=== PATIENT | male | born 1960 | race Caucasian/White ===

== ENCOUNTER 2025-10-01 11:22 | Inpatient (IN) ==
--- NOTE | 2025-10-01 11:47 | Emergency Department Note ---
Impression & Plan Arterial occlusion, Ischemia of left lower extremity, Acute non-ST elevation myocardial infarction (NSTEMI), COPD (chronic obstructive pulmonary disease), Pleural effusion ED Provider Note NAME: KELLY LOPEZ AGE: 65 SEX: M : 1960 ARRIVES VIA: Walk-In INFORMANT: Patient, ED PROVIDER(S): Eagle Collins DO CHIEF COMPLAINT: Leg numbness HPI: The patient is a 65-year-old male who presented to the emergency department for an evaluation of not being able to walk. The patient has numbness in both legs. This happened before when he had arterial occlusion. The patient denies having any trauma. He denies having any headache or weakness. He denies having a fever. The patient does have a history of tobacco use as well as peripheral artery disease. Patient also has a history of alcohol use. ROS: See above HPI for pertinent positives & negatives. A total of 10 systems reviewed and were otherwise negative. PAST MEDICAL HISTORY: See Below PAST SURGICAL HISTORY: See Below FAMILY HISTORY: See Below SOCIAL HISTORY: See Below HOME MEDICATIONS: See Below ALLERGIES: See Below VITALS: See Below PHYSICAL EXAMINATION: GENERAL: Patient is awake alert in no acute distress patient is resting comfortably and showing no signs of anxiety EYES: The conjunctivae are clear. The pupils are round and reactive. EARS, NOSE, MOUTH AND THROAT: The nose is without any evidence of any deformity. NECK: The neck is nontender and supple. RESPIRATORY: Normal respiratory effort is noted there is no evidence of wheezing rhonchi or rales CARDIOVASCULAR: Regular rate and rhythm noted there no murmurs rubs or gallops normal S1 normal S2. GASTROINTESTINAL: The abdomen is soft. Abdomen is nontender. MUSCULOSKELETAL/EXTREMITIES: There is no evidence of gross deformity full range of motion is noted in the hips and shoulders. SKIN: Skin is cold and dry. There is no pedal edema. Pulses are diminished bilaterally. NEUROLOGIC: Patient is awake alert and oriented x3. Speech was clear. Strength is symmetric. There is no facial droop. MEDICAL DECISION MAKING: The patient is a 65-year-old male who presented to the emergency department for an evaluation of leg numbness. The patient has a history of peripheral artery disease. He states that this has gotten worse especially since he started on a calcium channel yo. The patient was hypotensive and tachycardic. Initially I thought he could be septic. Blood cultures were ordered and the patient was treated with IV fluids and IV antibiotics. Ultimately the patient was also started on IV heparin for peripheral artery disease. He appears to have an NSTEMI as well. CT was obtained to rule out complete occlusion. There does appear to be of some degree of chronic findings on the CT angiography but some of these could be acute especially given the patient's symptoms. I discussed the patient's condition with the on-call [facility] hospitalist. I also discussed patient's condition with the patient's primary vascular surgeon. The patient was reevaluated multiple times. Blood pressure was improved. Pulse rate is still elevated. Triage Nursing notes reviewed. Prior medical records reviewed Vital Signs: reviewed and remarkable for tachycardia Differential diagnosis: Infection, dehydration, metabolic abnormality, hypo/hyperglycemia, electrolyte disturbance, anemia, hypoxia, cardiac sources, intracerebral event, toxicologic, neurologic, as well as other pathologies. ER treatment provided: See below Diagnostics interpreted by me: ECG: EKG was obtained in the emergency department. My interpretation is sinus tachycardia at [address] and T wave abnormalities were appreciated. This was compared to a tracing from July 31, 2025. No changes were noted. A second EKG was obtained in the emergency department. My interpretation is sinus tachycardia at 116 bpm. There is no ectopy. Similar ST abnormalities were noted to the earlier tracing. No significant changes were noted. Cardiac Monitoring: An order was placed for continuous cardiac monitoring. The monitor shows a rate of 110 bpm with sinus tachycardia. Laboratory studies: As stated above and show below. Imaging studies: See below. Radiographic imaging was reviewed by myself Consultation(s): I discussed this case with Dr. Fox who is on-call for the [facility]. I discussed this case with Dr. Chavez who is the patient's primary vascular surgeon. ED COURSE: Procedures: none Critical Care: I have personally spent greater than 45 minutes of critical care time in the direct management of this patient. This includes bedside care, interpretation of diagnostic studies, and testing, discussion with consultants, patient, and family members, and other required patient management activities. This 45 minutes is in excess of all separately billable procedures. Past Med/Surg History Problem List (Updated 10/01/25 @ 16:37 by Elizabeth Velasquez PA-C) LV dysfunction STEMI (ST elevation myocardial infarction) Pleural effusion (Acute) COPD (chronic obstructive pulmonary disease) (Acute) Acute non-ST elevation myocardial infarction (NSTEMI) (Acute) Arterial occlusion (Acute) Emphysema lung Hematochezia Hyponatremia (Acute) Tobacco use disorder (Acute) GI bleed (Acute) H/O fasciotomy Encounter for pre-operative examination Ischemia of left lower extremity (Acute) Hyponatremia (Chronic) Compartment syndrome Atrial septal defect Regional wall motion abnormality of heart Superficial femoral artery occlusion (Acute) Alcohol dependence (Chronic) Tobacco use (Chronic) Atherosclerosis (Chronic) HLD (hyperlipidemia) (Chronic) HTN (hypertension) (Chronic) Medical History Traumatic intracranial hematoma Surgical History Recent surgical procedure on lower extremity Patient had L leg wound closure/wound vac on 07/21/18 at [facility] under [place]. LMA 5 used. H/O hernia repair Hx of craniotomy DRAIN [id number] WORK INJURY NO ISSUES SINCE History of evacuation of hematoma LEFT X 2 S/P evacuation of hematoma H/O inguinal hernia repair Family History Father , age 79 Prostate cancer Heart disease Mother , age 74 Pancreatic cancer Social History Smoking Status: Current every day smoker Tobacco Type: Cigarettes Cigarettes Per Day: 1 pk/day; Second Hand Exposure: No; Do You Dip or Chew Tobacco: No; Hx Alcohol Use: Yes Alcohol type: beer Hx Substance Use: No Preferred Language: Armenian Communication Ability: Effective Visual Impairment: No Limitations Feed Weigher Required: No Beliefs That Will Affect Care: None Current Living Situation: Spouse Feels Safe at Home: Yes Assistive Devices: None Allergies Allergies Allergy/AdvReac Type Severity Reaction Status Date / Time No Known Allergies Allergy Verified 07/31/25 15:59 Home Meds Home Medications Medication Instructions Recorded Confirmed losartan 50 mg tablet 50 mg PO QAM 07/17/18 10/01/25 aspirin 81 mg tablet,delayed 0 mg PO QAM 10/01/25 10/01/25 release (Ecotrin Low Strength) Previous Rx's Medication Instructions Recorded pantoprazole 40 mg tablet,delayed 40 mg PO DAILY #30 tabs 08/02/25 release amoxicillin 500 mg-potassium 1 tab PO BID 5 days #10 tabs 10/01/25 clavulanate 125 mg tablet (Augmentin) atorvastatin 40 mg tablet 40 mg PO QAM 30 days #30 tabs 10/01/25 doxycycline hyclate 100 mg capsule 100 mg PO BID 5 days #10 caps 10/01/25 Results & Data (ED) Vital Signs Vital Signs - 24 hr 10/01/25 11:24 10/01/25 12:00 10/01/25 12:00 Temperature 36.3 C L Temperature Source Oral Pulse Rate 118 H 112 H Pulse Rate [Apical] 111 H Pulse Rate from SpO2 Sensor Respiratory Rate 17 18 18 Respiratory Effort / Characteristics Spontaneous Blood Pressure 96/64 L Blood Pressure [Left Arm] 109/87 Blood Pressure Mean 74 Blood Pressure Mean [Left Arm] 94 Pulse Oximetry 91 94 94 Oxygen Delivery Method Room Air Room Air Room Air Oxygen Flow Rate Sepsis Recent Fever Within 48 Hours No Sepsis New/Unexplained Change in Mental Status N/A Sepsis Action Taken by Nursing No Action Required Oxygen Flow Rate - Titration Pulse Oximetry Post Tiitration 10/01/25 12:09 10/01/25 13:30 10/01/25 14:00 Temperature Temperature Source Pulse Rate 116 H Pulse Rate [Apical] 112 H 122 H Pulse Rate from SpO2 Sensor Respiratory Rate 22 22 Respiratory Effort / Characteristics Labored Labored Blood Pressure Blood Pressure [Left Arm] 107/82 124/82 Blood Pressure Mean Blood Pressure Mean [Left Arm] 90 96 Pulse Oximetry 91 95 Oxygen Delivery Method Room Air Nasal Cannula Oxygen Flow Rate 2 Sepsis Recent Fever Within 48 Hours Sepsis New/Unexplained Change in Mental Status Sepsis Action Taken by Nursing Oxygen Flow Rate - Titration Pulse Oximetry Post Tiitration 10/01/25 14:15 10/01/25 14:15 10/01/25 14:45 Temperature Temperature Source Pulse Rate Pulse Rate [Apical] 110 H Pulse Rate from SpO2 Sensor Respiratory Rate 20 Respiratory Effort / Characteristics Blood Pressure 117/85 Blood Pressure [Left Arm] 114/85 Blood Pressure Mean 95 Blood Pressure Mean [Left Arm] 94 Pulse Oximetry 88 L 96 Oxygen Delivery Method Room Air Nasal Cannula Nasal Cannula Oxygen Flow Rate 0 2 Sepsis Recent Fever Within 48 Hours Sepsis New/Unexplained Change in Mental Status Sepsis Action Taken by Nursing Oxygen Flow Rate - Titration 2 Pulse Oximetry Post Tiitration 94 10/01/25 14:45 10/01/25 14:45 10/01/25 14:45 Temperature Temperature Source Pulse Rate Pulse Rate [Apical] Pulse Rate from SpO2 Sensor Respiratory Rate Respiratory Effort / Characteristics Blood Pressure 117/85 117/85 117/85 Blood Pressure [Left Arm] Blood Pressure Mean 95 95 95 Blood Pressure Mean [Left Arm] Pulse Oximetry Oxygen Delivery Method Oxygen Flow Rate Sepsis Recent Fever Within 48 Hours Sepsis New/Unexplained Change in Mental Status Sepsis Action Taken by Nursing Oxygen Flow Rate - Titration Pulse Oximetry Post Tiitration 10/01/25 14:45 10/01/25 14:45 10/01/25 15:00 Temperature Temperature Source Pulse Rate 109 H 108 H Pulse Rate [Apical] Pulse Rate from SpO2 Sensor 110 H 109 H Respiratory Rate 23 22 Respiratory Effort / Characteristics Blood Pressure 117/85 Blood Pressure [Left Arm] Blood Pressure Mean 95 Blood Pressure Mean [Left Arm] Pulse Oximetry 96 95 Oxygen Delivery Method Nasal Cannula Nasal Cannula Oxygen Flow Rate 2 2 Sepsis Recent Fever Within 48 Hours Sepsis New/Unexplained Change in Mental Status Sepsis Action Taken by Nursing Oxygen Flow Rate - Titration Pulse Oximetry Post Tiitration 10/01/25 15:00 10/01/25 15:00 10/01/25 15:00 Temperature Temperature Source Pulse Rate Pulse Rate [Apical] Pulse Rate from SpO2 Sensor Respiratory Rate Respiratory Effort / Characteristics Blood Pressure 120/83 120/83 120/83 Blood Pressure [Left Arm] Blood Pressure Mean 92 92 92 Blood Pressure Mean [Left Arm] Pulse Oximetry Oxygen Delivery Method Oxygen Flow Rate Sepsis Recent Fever Within 48 Hours Sepsis New/Unexplained Change in Mental Status Sepsis Action Taken by Nursing Oxygen Flow Rate - Titration Pulse Oximetry Post Tiitration 10/01/25 15:00 10/01/25 15:00 10/01/25 15:15 Temperature Temperature Source Pulse Rate 109 H Pulse Rate [Apical] Pulse Rate from SpO2 Sensor 109 H Respiratory Rate 22 Respiratory Effort / Characteristics Blood Pressure 120/83 120/83 Blood Pressure [Left Arm] Blood Pressure Mean 92 92 Blood Pressure Mean [Left Arm] Pulse Oximetry 94 Oxygen Delivery Method Nasal Cannula Oxygen Flow Rate 2 Sepsis Recent Fever Within 48 Hours Sepsis New/Unexplained Change in Mental Status Sepsis Action Taken by Nursing Oxygen Flow Rate - Titration Pulse Oximetry Post Tiitration 10/01/25 15:15 10/01/25 15:15 10/01/25 15:15 Temperature Temperature Source Pulse Rate Pulse Rate [Apical] Pulse Rate from SpO2 Sensor Respiratory Rate Respiratory Effort / Characteristics Blood Pressure 120/86 120/86 120/86 Blood Pressure [Left Arm] Blood Pressure Mean 90 90 90 Blood Pressure Mean [Left Arm] Pulse Oximetry Oxygen Delivery Method Oxygen Flow Rate Sepsis Recent Fever Within 48 Hours Sepsis New/Unexplained Change in Mental Status Sepsis Action Taken by Nursing Oxygen Flow Rate - Titration Pulse Oximetry Post Tiitration 10/01/25 15:15 10/01/25 15:15 10/01/25 15:30 Temperature Temperature Source Pulse Rate 110 H Pulse Rate [Apical] Pulse Rate from SpO2 Sensor 110 H Respiratory Rate 23 Respiratory Effort / Characteristics Blood Pressure 120/86 120/86 Blood Pressure [Left Arm] Blood Pressure Mean 90 90 Blood Pressure Mean [Left Arm] Pulse Oximetry 94 Oxygen Delivery Method Nasal Cannula Oxygen Flow Rate 2 Sepsis Recent Fever Within 48 Hours Sepsis New/Unexplained Change in Mental Status Sepsis Action Taken by Nursing Oxygen Flow Rate - Titration Pulse Oximetry Post Tiitration 10/01/25 15:30 10/01/25 15:30 10/01/25 15:30 Temperature Temperature Source Pulse Rate Pulse Rate [Apical] Pulse Rate from SpO2 Sensor Respiratory Rate Respiratory Effort / Characteristics Blood Pressure 123/80 123/80 123/80 Blood Pressure [Left Arm] Blood Pressure Mean 90 90 90 Blood Pressure Mean [Left Arm] Pulse Oximetry Oxygen Delivery Method Oxygen Flow Rate Sepsis Recent Fever Within 48 Hours Sepsis New/Unexplained Change in Mental Status Sepsis Action Taken by Nursing Oxygen Flow Rate - Titration Pulse Oximetry Post Tiitration 10/01/25 15:30 10/01/25 15:30 10/01/25 15:30 Temperature Temperature Source Pulse Rate Pulse Rate [Apical] Pulse Rate from SpO2 Sensor Respiratory Rate Respiratory Effort / Characteristics Blood Pressure 123/80 123/80 123/80 Blood Pressure [Left Arm] Blood Pressure Mean 90 90 90 Blood Pressure Mean [Left Arm] Pulse Oximetry Oxygen Delivery Method Oxygen Flow Rate Sepsis Recent Fever Within 48 Hours Sepsis New/Unexplained Change in Mental Status Sepsis Action Taken by Nursing Oxygen Flow Rate - Titration Pulse Oximetry Post Tiitration 10/01/25 15:30 10/01/25 15:30 10/01/25 15:30 Temperature Temperature Source Pulse Rate Pulse Rate [Apical] Pulse Rate from SpO2 Sensor Respiratory Rate Respiratory Effort / Characteristics Blood Pressure 123/80 123/80 123/80 Blood Pressure [Left Arm] Blood Pressure Mean 90 90 90 Blood Pressure Mean [Left Arm] Pulse Oximetry Oxygen Delivery Method Oxygen Flow Rate Sepsis Recent Fever Within 48 Hours Sepsis New/Unexplained Change in Mental Status Sepsis Action Taken by Nursing Oxygen Flow Rate - Titration Pulse Oximetry Post Tiitration 10/01/25 15:45 10/01/25 15:45 10/01/25 15:45 Temperature Temperature Source Pulse Rate 108 H Pulse Rate [Apical] Pulse Rate from SpO2 Sensor 109 H Respiratory Rate 21 Respiratory Effort / Characteristics Blood Pressure 116/85 116/85 Blood Pressure [Left Arm] Blood Pressure Mean 91 91 Blood Pressure Mean [Left Arm] Pulse Oximetry 96 Oxygen Delivery Method Nasal Cannula Oxygen Flow Rate 2 Sepsis Recent Fever Within 48 Hours Sepsis New/Unexplained Change in Mental Status Sepsis Action Taken by Nursing Oxygen Flow Rate - Titration Pulse Oximetry Post Tiitration 10/01/25 15:45 10/01/25 15:45 10/01/25 15:45 Temperature Temperature Source Pulse Rate Pulse Rate [Apical] Pulse Rate from SpO2 Sensor Respiratory Rate Respiratory Effort / Characteristics Blood Pressure 116/85 116/85 116/85 Blood Pressure [Left Arm] Blood Pressure Mean 91 91 91 Blood Pressure Mean [Left Arm] Pulse Oximetry Oxygen Delivery Method Oxygen Flow Rate Sepsis Recent Fever Within 48 Hours Sepsis New/Unexplained Change in Mental Status Sepsis Action Taken by Nursing Oxygen Flow Rate - Titration Pulse Oximetry Post Tiitration 10/01/25 16:00 10/01/25 16:00 10/01/25 16:00 Temperature Temperature Source Pulse Rate 130 H Pulse Rate [Apical] Pulse Rate from SpO2 Sensor 133 H Respiratory Rate 24 Respiratory Effort / Characteristics Blood Pressure 135/94 135/94 Blood Pressure [Left Arm] Blood Pressure Mean 96 96 Blood Pressure Mean [Left Arm] Pulse Oximetry 94 Oxygen Delivery Method Nasal Cannula Oxygen Flow Rate 2 Sepsis Recent Fever Within 48 Hours Sepsis New/Unexplained Change in Mental Status Sepsis Action Taken by Nursing Oxygen Flow Rate - Titration Pulse Oximetry Post Tiitration 10/01/25 16:00 10/01/25 16:00 10/01/25 16:00 Temperature Temperature Source Pulse Rate Pulse Rate [Apical] Pulse Rate from SpO2 Sensor Respiratory Rate Respiratory Effort / Characteristics Blood Pressure 135/94 135/94 135/94 Blood Pressure [Left Arm] Blood Pressure Mean 96 96 96 Blood Pressure Mean [Left Arm] Pulse Oximetry Oxygen Delivery Method Oxygen Flow Rate Sepsis Recent Fever Within 48 Hours Sepsis New/Unexplained Change in Mental Status Sepsis Action Taken by Nursing Oxygen Flow Rate - Titration Pulse Oximetry Post Tiitration 10/01/25 16:06 10/01/25 16:15 10/01/25 16:15 Temperature Temperature Source Pulse Rate 126 H 114 H Pulse Rate [Apical] Pulse Rate from SpO2 Sensor 114 H Respiratory Rate 21 Respiratory Effort / Characteristics Blood Pressure 115/80 Blood Pressure [Left Arm] Blood Pressure Mean 91 Blood Pressure Mean [Left Arm] Pulse Oximetry 96 Oxygen Delivery Method Nasal Cannula Oxygen Flow Rate 2 Sepsis Recent Fever Within 48 Hours Sepsis New/Unexplained Change in Mental Status Sepsis Action Taken by Nursing Oxygen Flow Rate - Titration Pulse Oximetry Post Tiitration 10/01/25 16:15 10/01/25 16:15 10/01/25 16:15 Temperature Temperature Source Pulse Rate Pulse Rate [Apical] Pulse Rate from SpO2 Sensor Respiratory Rate Respiratory Effort / Characteristics Blood Pressure 115/80 115/80 115/80 Blood Pressure [Left Arm] Blood Pressure Mean 91 91 91 Blood Pressure Mean [Left Arm] Pulse Oximetry Oxygen Delivery Method Oxygen Flow Rate Sepsis Recent Fever Within 48 Hours Sepsis New/Unexplained Change in Mental Status Sepsis Action Taken by Nursing Oxygen Flow Rate - Titration Pulse Oximetry Post Tiitration 10/01/25 16:15 10/01/25 16:30 Temperature Temperature Source Pulse Rate 115 H Pulse Rate [Apical] Pulse Rate from SpO2 Sensor 115 H Respiratory Rate 20 Respiratory Effort / Characteristics Blood Pressure 115/80 Blood Pressure [Left Arm] Blood Pressure Mean 91 Blood Pressure Mean [Left Arm] Pulse Oximetry 98 Oxygen Delivery Method Nasal Cannula Oxygen Flow Rate 2 Sepsis Recent Fever Within 48 Hours Sepsis New/Unexplained Change in Mental Status Sepsis Action Taken by Nursing Oxygen Flow Rate - Titration Pulse Oximetry Post Tiitration Home Medications Current Medication List: was personally reviewed by mn Laboratory Data Attestation: I reviewed the patient's lab results. 10/01/25 12:00 10/01/25 12:00 Lab Results 10/01/25 10/01/25 10/01/25 Range/Units 12:00 12:10 13:53 WBC 13.93 H (4.8-10.8) K/ul RBC 3.74 L (4.70-6.10) M/uL Hgb 10.1 L (14.0-18.0) g/dL POC Hgb 10.2 L (14.0-18.0) g/dl Hct 29.9 L (42.0-52.0) % POC Hct 30 L (42-52) % MCV 79.9 L (80.0-100.0) fL MCH 27.0 (25.0-34.0) pg MCHC 33.8 (32.0-36.0) g/dL RDW Std Deviation 46.2 (36.4-46.3) fL RDW Coeff of Mercedes 15.9 H (11.5-14.5) % Plt Count 269 (130-400) K/uL MPV 9.8 (9.4-12.4) fL Immature Gran % (Auto) 0.4 % Neut % (Auto) 87.6 % Lymph % (Auto) 5.8 % [place] % (Auto) 6.0 % Eos % (Auto) 0.1 % Baso % (Auto) 0.1 % Neut # (Auto) 12.20 H (1.40-6.50) K/uL Lymph # (Auto) 0.81 L (1.20-3.40) K/uL [place] # (Auto) 0.83 H (0.11-0.59) K/uL Eos # (Auto) 0.01 (0.00-0.50) K/uL Baso # (Auto) 0.02 (0.00-0.20) K/uL Immature Gran # (Auto) 0.06 (0.01-0.20) K/uL Polychromasia 2+ Echinocytes 1+ PT 11.4 (9.0-12.0) Seconds INR 1.1 (0.9-1.1) APTT 24 (21-31) Seconds PTT Ratio 0.9 VBG pH 7.35 L (7.36-7.41) VBG pCO2 40 (38-50) mmHg VBG pO2 20 mmHg VBG HCO3 22 mmol/L VBG O2 Saturation < 60.0 % VBG Base Excess -3.3 mEq/L POC Sodium 130 L (135-144) mmol/L Sodium 131 L (136-145) mmol/L POC Potassium 4.1 (3.3-5.0) mmol/L Potassium 4.2 (3.5-5.1) mmol/L POC Chloride 95 L (101-112) mmol/L Chloride 96 L (98-107) mmol/L Carbon Dioxide 24 (21-32) mmol/L POC Total CO2 23 L (24-31) mmol/L Anion Gap 11 (3-11) POC Anion Gap 17.0 (16-25) mmol/L POC BUN 15 (7-18) mg/dl BUN 16 (6-23) mg/dl Creatinine 0.86 (0.6-1.4) mg/dl POC Creatinine 0.9 (0.6-1.3) mg/dl Est Cr Clr Drug Dosing Not Reportable eGFR 94.90 BUN/Creatinine Ratio 18.6 (10-20) Glucose 99 (70-99(Fasting)) mg/dl POC Glucose (other) 95 (70-99) mg/dl Lactate 3.4 H* 2.8 H* (0.4-2.0) mmol/L Calcium 8.9 (8.6-10.3) mg/dl POC Ioniz Calcium Rashida 1.11 L (1.12-1.32) mmol/l Magnesium 2.0 (1.7-2.4) mg/dl Total Bilirubin 0.6 (0.2-1.0) mg/dl Direct Bilirubin 0.1 (0-0.2) mg/dl AST 246 H (13-39) U/L ALT 67 H (7-52) U/L Alkaline Phosphatase 80 (34-104) U/L Troponin I High Sens 18673.3 H* 24681.6 H* (0-20) pg/ml Total Protein 6.8 (6.0-8.3) gm/dl Albumin 4.5 (3.4-5.0) gm/dl Procalcitonin 2.33 H (0-0.5) ng/ml Administered Medications Discontinued Medications Albuterol (Albut/Ipratrop 3mg/0.5mg Neb 3 Ml Vial) 3 ml NEB NOW STA; Protocol Stop: 10/01/25 14:05 Last Admin: 10/01/25 14:07 Dose: 3 ml Documented By: SHANKAR Fentanyl Citrate (Fentanyl Citrate Pf 100 Mcg/2 Ml Vial) Confirm Administered Dose 100 mcg .ROUTE .STK-MED ONE Stop: 10/01/25 16:25 Last Increment: 10/01/25 17:38 Dose: 50 mcg Documented By: SCOTT Heparin Sodium (Porcine) (Heparin (Porcine) 1000 Unit/Ml 10 Ml (Rn Radiology Use Only)) Confirm Administered Dose 10,000 units .ROUTE .STK-MED ONE Stop: 10/01/25 16:24 Last Admin: 10/01/25 17:38 Dose: Not Given Documented By: SCOTT Heparin Sodium/Dextrose (Heparin Iv Adult Wt-Based Low-Dose *No* Initial Bolus Protocol) 1 each IV ONE STA; Protocol Stop: 10/01/25 13:27 Last Admin: 10/01/25 14:27 Dose: Not Given Documented By: aditi Heparin Sodium/Sodium Chloride (Heparin In Nss Infusion 1000 Unit/500 Ml (2 U/Ml) Bag) Confirm Administered Dose 3,000 units IV .STK-MED ONE Stop: 10/01/25 16:25 Last Admin: 10/01/25 17:39 Dose: Not Given Documented By: SCOTT Sodium Chloride (Nss) 500 mls @ 999 mls/hr IV .Q31M ONE Stop: 10/01/25 12:09 Last Infusion: 10/01/25 14:40 Dose: Infused Documented By: aditi Admin: 10/01/25 13:21 Dose: 999 mls/hr Documented By: SHANKAR Sodium Chloride (Nss) 1,000 mls @ 999 mls/hr IV .Q1H1M ONE Stop: 10/01/25 14:04 Last Infusion: 10/01/25 14:39 Dose: Infused Documented By: aidti Admin: 10/01/25 13:21 Dose: 999 mls/hr Documented By: SHANKAR Ceftriaxone Sodium (Rocephin) 2,000 mg in 50 mls @ 100 mls/hr IV NOW STA Stop: 10/01/25 13:33 Last Infusion: 10/01/25 14:00 Dose: Infused Documented By: aditi Admin: 10/01/25 13:27 Dose: 100 mls/hr Documented By: aditi Heparin Sodium/Dextrose (Heparin 62693 Unit/500 Ml D5w) 25,000 units in 500 mls @ 11 mls/hr IV .Q24H [facility]; Protocol Stop: 10/31/25 13:44 Last Admin: 10/01/25 19:48 Dose: 550 units/hr, 11 mls/hr Documented By: JUICE Co-signed By: ALESHIA Titration: 10/01/25 19:48 Dose: Infused Documented By: JUICE Co-signed By: ALESHIA Admin: 10/01/25 14:19 Dose: 550 units/hr, 11 mls/hr Documented By: aditi Co-signed By: SHANKAR Ioversol (Optiray 320 125ml) 121 ml IV ONCE ONE Stop: 10/01/25 13:20 Last Admin: 10/01/25 13:20 Dose: 121 ml Documented By: FABBY Ioversol (Optiray 350) Confirm Administered Dose 1 ml .ROUTE .STK-MED ONE Stop: 10/01/25 16:25 Last Admin: 10/01/25 17:39 Dose: 10 ml Documented By: SCOTT Lidocaine HCl (Lidocaine 1% Local 20 Ml Vial) Confirm Administered Dose 1 ml .ROUTE .STK-MED ONE Stop: 10/01/25 16:34 Last Admin: 10/01/25 17:39 Dose: 1 ml Documented By: SCOTT Lorazepam (Lorazepam 1 Mg/1 Ml Syr Ed Inj Use) 0.5 mg IV ONE STA Stop: 10/01/25 13:05 Last Admin: 10/01/25 13:08 Dose: 0.5 mg Documented By: aditi Midazolam HCl (Midazolam Hcl 1 Mg/Ml 2ml Vial) Confirm Administered Dose 2 mg .ROUTE .STK-MED ONE Stop: 10/01/25 16:24 Last Admin: 10/01/25 17:38 Dose: 2 mg Documented By: SCOTT Nicardipine HCl (Nicardipine 2,000 Mcg/20 Ml Syr) Confirm Administered Dose 2,000 mcg .ROUTE .STK-MED ONE Stop: 10/01/25 16:25 Last Admin: 10/01/25 17:39 Dose: Not Given Documented By: SCOTT Nitroglycerin/Dextrose (Nitroglycerin/D5w 100mcg/Ml 20ml Syr) Confirm Administered Dose 2,000 mcg .ROUTE .STK-MED ONE Stop: 10/01/25 16:25 Last Admin: 10/01/25 17:39 Dose: Not Given Documented By: SCOTT Imaging Data Attestation: I personally reviewed and interpreted this imaging study as follows: My Impression: 1 view chest x-ray was obtained in the emergency department. My interpretation is bilateral pleural effusions, final report below. Radiologist's Impression: Aorta w/Runoff CTA 10/01/25 11:39 EXAM: CT ang AA runof w inc wo ifdon CLINICAL HISTORY: Leg numbness. TECHNIQUE: CT angiography of the abdomen, pelvis, and both lower limbs was performed with and without intravenous contrast using the following protocol: axial images, and reconstructed coronal and sagittal images. Non-contrast images were initially acquired, followed by contrast-enhanced images in arterial and venous phases. Intravenous contrast, 121 ml Optiray 320, was administered using automated injection techniques. Bolus tracking was employed to optimize arterial phase imaging. COMPARISON: None. FINDINGS: Abdominal Aorta: The abdominal aorta is normal in caliber, with diffuse atheroscelrotic changes in terms of multiple calcified plaques. The distal extent of the abdominal aorta along its infra-renal course shows mixed soft and calcified plaque extending distally to its bifurcation with bilateral extension along the common iliac arteries. Distal arterial significant stenosis reaching 70 %. The Iliac arteries: Both common iliac arteries are totally occluded by the same hypodense plaque /thrombus. The proximal extent of both external iliac arteries also shows total occlusion by hypodense plaque /thrombus. The distal extents of both external iliac arteries and common femoral arteries show distal runoff contrast likely through collateral circulation. Diffuse atherosclerotic calcification of the common iliac, both external and internal iliac, and lower limb areteries noted. Severe stenosis of both internal iliac arteries was noted. severe stenosis of the right common femoral artery by eccentric calcified atherosclerotic plaques. Left lower limb: The left common femoral artery shows fusiform aneurysmal dilatation (14x14 mm in cross-section) with mural thrombus noted; the true lumen is also narrowed. The left superficial femoral artery shows marked atherosclerotic changes with severe stenosis at its distal segment, reaching about 70 to 80 %. Severe stenosis of the left popliteal artery by multiple calcified atherosclerotic plaques reaching about 80%. Severe stenotic changes of the right leg arteries were also noted with defective opacification in the anterior tibial and peroneal arterioles distally, and non-opacified dorsalis pedis as well. The plantar arch is also suboptimally opacified. Right lower limb: The right superficial femoral artery shows multiple scattered calcified atherosclerotic plaques with distal arterial stenosis of about 60 %. Severe stenosis of the right popliteal artery by multiple calcified atherosclerotic plaques reaching about 80% with distal run off to its distal branches. Severe stenotic changes of the right leg arteries were also noted with defective opacification in the anterior tibial and peroneal arteries distally, and non-opacified dorsalis pedis as well. The plantar arch is also suboptimally opacified. Celiac Artery and Branches: The celiac artery and its branches (left gastric artery, splenic artery, common hepatic artery) are patent without stenosis or aneurysm. Scattered calcified atheromatous plaques noted. Superior Mesenteric Artery (SMA) and inferior mesenteric artery: The SMA is patent, with normal origin and course. show mild sntoesis by calcified atherosclerotic plaque. The FEMI is patent Renal Arteries: Both renal arteries show stenotic changes due to calcified atherosclerotic plaques. Solid Organs: Liver: Normal in size, shape, and density. No focal lesions. Normal enhancement pattern. Gallbladder and Biliary System: Gallbladder is normal. No stones or wall thickening. Bile ducts are normal in caliber. Pancreas: Normal in size and density. No masses or cysts. Normal enhancement. Spleen: Normal in size and density. No focal lesions. Normal enhancement. Kidneys and Adrenal Glands: Normal in size and shape. No renal masses or hydronephrosis. Adrenal glands are unremarkable. Normal enhancement. Bilateral renal cortical cysts noted. Bowel: No evidence of bowel obstruction or significant bowel wall thickening. No abnormal enhancement. Peritoneal and Retroperitoneal Structures: No free fluid or abnormal fluid collections were identified within the abdomen or pelvis. No lymphadenopathy was noted. Mild bilateral pleural effusion with subsegmental atelectasis noted. Bones and Soft Tissues: Advanced spondylosis of the lumbar spine noted. Pelvic bones and soft tissues are unremarkable. No fractures or abnormal masses were identified. IMPRESSION: 1. Diffuse aortic, iliac, and both lower limb vessels atherosclerosis. 2. Distal aortic stenosis and total occlusion of both common iliac, external iliac vessels, with distal run off through collateral circulation noted. 3. Multilevel stenosis at the distal lower limb vessels as described above. 4. 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 5. Severe leg vascular stenotic changes were bilateral, with non-opacified distal anterior tibialis, peroneal, dorsalis pedis arteries, and to a lesser extent, plantar arches noted as described above. 6. Mild bilateral pleural effusion with subsegmental atelectasis noted. Electronically signed by Everardo Worley 10-01-2025 3:17 PM Chest X-Ray 10/01/25 11:39 Single frontal view of the chest Comparison made to prior exam dated 07/29/2018 Impression: Interval development of bilateral pleural effusions right greater than left with diffuse prominence of the interstitial infiltrate suggesting pulmonary edema. Slight fullness of the right hilum may represent lymphadenopathy. Dedicated chest CT with contrast recommended for further evaluation. Electronically signed by Magdaleno Nguyen 10-01-2025 2:11 PM Discharge Plan Visit Data Chief Complaint: Shortness of Breath/Dyspnea Stated Complaint: NUMBNESS, TROUBLE BREATHING ED Provider: Eagle Collins Discharge Problem: Arterial occlusion, Ischemia of left lower extremity, Acute non-ST elevation myocardial infarction (NSTEMI), COPD (chronic obstructive pulmonary disease), Pleural effusion Patient Disposition: Admitted As Inpatient Condition: Fair Discharge Instructions Interventions: ED Discharge Assessment Last Done: 10/01/25 16:51
[2025-10-01 12:19] LABS: Base Excess VBG -3.3 mEq/L; HCO3 VBG 22 mmol/L; Oxygen Saturation VBG < 60.0 %; PCO2 VBG 40 mmHg (38-50); PO2 VBG 20 mmHg; pH VBG 7.35 (7.36-7.41)
[2025-10-01 12:40] LABS: Alanine Aminotransferase 67 U/L (7-52); Albumin Level 4.5 gm/dl (3.4-5.0); Alkaline Phosphatase 80 U/L (34-104); Anion Gap 11 (3-11); Bilirubin,Total 0.6 mg/dl (0.2-1.0); Blood Urea Nitrogen 16 mg/dl (6-23); Calcium 8.9 mg/dl (8.6-10.3); Carbon Dioxide 24 mmol/L (21-32); Chloride 96 mmol/L (98-107); Glucose 99 mg/dl (70-99(Fasting)); Magnesium 2.0 mg/dl (1.7-2.4); Potassium 4.2 mmol/L (3.5-5.1); Sodium 131 mmol/L (136-145); Total Protein 6.8 gm/dl (6.0-8.3)
[2025-10-01 12:54] LABS: INR 1.1 (0.9-1.1); Partial Thromboplastin Time 24 Seconds (21-31); Prothrombin Time 11.4 Seconds (9.0-12.0)
[2025-10-01 13:02] LABS: Hematocrit (blood only) 29.9 % (42.0-52.0); Hemoglobin 10.1 g/dL (14.0-18.0); Immature Granulocytes # (auto) 0.06 K/uL (0.01-0.20); Immature Granulocytes % (auto) 0.4 %; Mean Corpuscular Hemoglobin 27.0 pg (25.0-34.0); Mean Corpuscular Volume 79.9 fL (80.0-100.0); Platelet Count 269 K/uL (130-400); Polychromasia 2+; RDW Standard Deviation 46.2 fL (36.4-46.3); Red Blood Count 3.74 M/uL (4.70-6.10); White Blood Count 13.93 K/ul (4.8-10.8)
[2025-10-01] MEDS: LORazepam 1 MG/1 ML SYR ED Inj Use IV STA (13:08)
[2025-10-01] MEDS: OPTIRAY 320 125ml IV ONE (13:20)
[2025-10-01] MEDS: SODIUM CHLORIDE 0.9% 1,000 ML IV ONE (13:21)
[2025-10-01] MEDS: SODIUM CHLORIDE 0.9% 500 ML IV ONE (13:21)
[2025-10-01] MEDS: cefTRIAXone SODIUM 2,000 MG/50 ML BAG IV STA (13:27)
[2025-10-01] MEDS: ALBUT/IPRATROP 3MG/0.5MG NEB 3 ML VIAL NEB STA (14:07)
--- NOTE | 2025-10-01 14:11 | XRay Report ---
Single frontal view of the chest Comparison made to prior exam dated 07/29/2018 Impression: Interval development of bilateral pleural effusions right greater than left with diffuse prominence of the interstitial infiltrate suggesting pulmonary edema. Slight fullness of the right hilum may represent lymphadenopathy. Dedicated chest CT with contrast recommended for further evaluation. Electronically signed by Magdaleno Nguyen 10-01-2025 2:11 PM
[2025-10-01] MEDS: HEPARIN 25000 UNIT/500 ML D5W 25,000 UNITS/500 ML BAG IV SCH (14:19)
[2025-10-01] MEDS: Heparin IV Adult Wt-Based Low-Dose *NO* INITIAL Bolus Protocol IV STA (14:27)
--- NOTE | 2025-10-01 15:17 | CT Scan Report ---
EXAM: CT ang ARMANI chandrakantkaylie amanda kaur CLINICAL HISTORY: Leg numbness. TECHNIQUE: CT angiography of the abdomen, pelvis, and both lower limbs was performed with and without intravenous contrast using the following protocol: axial images, and reconstructed coronal and sagittal images. Non-contrast images were initially acquired, followed by contrast-enhanced images in arterial and venous phases. Intravenous contrast, 121 ml Optiray 320, was administered using automated injection techniques. Bolus tracking was employed to optimize arterial phase imaging. COMPARISON: None. FINDINGS: Abdominal Aorta: The abdominal aorta is normal in caliber, with diffuse atheroscelrotic changes in terms of multiple calcified plaques. The distal extent of the abdominal aorta along its infra-renal course shows mixed soft and calcified plaque extending distally to its bifurcation with bilateral extension along the common iliac arteries. Distal arterial significant stenosis reaching 70 %. The Iliac arteries: Both common iliac arteries are totally occluded by the same hypodense plaque /thrombus. The proximal extent of both external iliac arteries also shows total occlusion by hypodense plaque /thrombus. The distal extents of both external iliac arteries and common femoral arteries show distal runoff contrast likely through collateral circulation. Diffuse atherosclerotic calcification of the common iliac, both external and internal iliac, and lower limb areteries noted. Severe stenosis of both internal iliac arteries was noted. severe stenosis of the right common femoral artery by eccentric calcified atherosclerotic plaques. Left lower limb: The left common femoral artery shows fusiform aneurysmal dilatation (14x14 mm in cross-section) with mural thrombus noted; the true lumen is also narrowed. The left superficial femoral artery shows marked atherosclerotic changes with severe stenosis at its distal segment, reaching about 70 to 80 %. Severe stenosis of the left popliteal artery by multiple calcified atherosclerotic plaques reaching about 80%. Severe stenotic changes of the right leg arteries were also noted with defective opacification in the anterior tibial and peroneal arterioles distally, and non-opacified dorsalis pedis as well. The plantar arch is also suboptimally opacified. Right lower limb: The right superficial femoral artery shows multiple scattered calcified atherosclerotic plaques with distal arterial stenosis of about 60 %. Severe stenosis of the right popliteal artery by multiple calcified atherosclerotic plaques reaching about 80% with distal run off to its distal branches. Severe stenotic changes of the right leg arteries were also noted with defective opacification in the anterior tibial and peroneal arteries distally, and non-opacified dorsalis pedis as well. The plantar arch is also suboptimally opacified. Celiac Artery and Branches: The celiac artery and its branches (left gastric artery, splenic artery, common hepatic artery) are patent without stenosis or aneurysm. Scattered calcified atheromatous plaques noted. Superior Mesenteric Artery (SMA) and inferior mesenteric artery: The SMA is patent, with normal origin and course. show mild sntoesis by calcified atherosclerotic plaque. The FEMI is patent Renal Arteries: Both renal arteries show stenotic changes due to calcified atherosclerotic plaques. Solid Organs: Liver: Normal in size, shape, and density. No focal lesions. Normal enhancement pattern. Gallbladder and Biliary System: Gallbladder is normal. No stones or wall thickening. Bile ducts are normal in caliber. Pancreas: Normal in size and density. No masses or cysts. Normal enhancement. Spleen: Normal in size and density. No focal lesions. Normal enhancement. Kidneys and Adrenal Glands: Normal in size and shape. No renal masses or hydronephrosis. Adrenal glands are unremarkable. Normal enhancement. Bilateral renal cortical cysts noted. Bowel: No evidence of bowel obstruction or significant bowel wall thickening. No abnormal enhancement. Peritoneal and Retroperitoneal Structures: No free fluid or abnormal fluid collections were identified within the abdomen or pelvis. No lymphadenopathy was noted. Mild bilateral pleural effusion with subsegmental atelectasis noted. Bones and Soft Tissues: Advanced spondylosis of the lumbar spine noted. Pelvic bones and soft tissues are unremarkable. No fractures or abnormal masses were identified. IMPRESSION: 1. Diffuse aortic, iliac, and both lower limb vessels atherosclerosis. 2. Distal aortic stenosis and total occlusion of both common iliac, external iliac vessels, with distal run off through collateral circulation noted. 3. Multilevel stenosis at the distal lower limb vessels as described above. 4. 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 5. Severe leg vascular stenotic changes were bilateral, with non-opacified distal anterior tibialis, peroneal, dorsalis pedis arteries, and to a lesser extent, plantar arches noted as described above. 6. Mild bilateral pleural effusion with subsegmental atelectasis noted. Electronically signed by Everardo Worley 10-01-2025 3:17 PM
--- NOTE | 2025-10-01 16:05 | XCELERA ---
[id number] \\[id number]
[2025-10-01] MEDS ORDERED: ACETAMINOPHEN 325 MG TAB PO PRN (16:21)
--- NOTE | 2025-10-01 16:33 | History & Physical Report ---
Date of Service October 01, 2025 Assessment & Plan (1) Acute non-ST elevation myocardial infarction (NSTEMI): Plan Assessment/plan NSTEMI Severe peripheral vascular disease Acute on chronic systolic CHF Possible pneumonia Hyponatremia Patient presented to the hospital with fall and generalized weakness Hemoglobin of 10.1; serum sodium of 131 Lactate was elevated to 3.4, down trended to 2.8 Pro-Fausto elevated High-sensitivity troponin elevated to 35,000; uptrending to 41,884. Chest x-ray shows bilateral pulmonary edema and emphysema. CTA with runoff shows diffuse aortic, iliac and both limb vessel atherosclerosis, distal aortic stenosis and total occlusion of both common iliac, external iliac with distal runoff through collateral circulation, left common femoral artery aneurysmal dilation, severe left leg vascular stenosis changes. Discussion was done with echocardiogram tech, cardiology; stat echo was obtained which showed severely reduced EF of less than 15%; all gillis are akinetic except for basal segment. Heart alert was called after cardiology evaluated the patient; general cardiology discussed the case with interventional cardiology for cardiac cath. Continue on heparin drip, aspirin, Lipitor. Obtain lipid panel in a.m. Trend troponin Consult vascular surgery for further recommendation Continue on empiric antibiotic with ceftriaxone, doxycyline Trend troponin hold diuretics for now COPDbudesonide, formoterol nebs, DuoNeb Q8 Hyponatremia- serum sodium 130s; similar to the baseline Hypertensioncontinue losartan. Hold amlodipine and Lasix Hyperlipidemiastarted on Lipitor Full code DVT prophylaxis heparin Plan of care discussed with the patient's at bedside. She is in agreement with the plan total critical time spent evaluating patient, direct bedside care, chart review, placing orders, interpretation of diagnostic studies, discussion with consultants, patient, and family members, as well as other required patient management activities is 90 minutes Please note the above document was generated using voice recognition software. It may contain grammatical, syntax or spelling errors. Any formal questions or concerns about the content, text or information contained within the body of this dictation should be directly addressed to the provider for clarification History of Present Illness Primary Care Provider: JESSICA Keyes History obtained from chart review, interview with the patient and discussion with the ED provider. Past medical history left ischemic leg with left femoral artery occlusion, compartment syndrome status post surgery in 2018, current tobacco smoker, hypertension. Patient presented to the hospital after he had a fall. He reports that he tried to get up but was unable to do so; got weaker and fell down. No complaints of dizziness, chest pain, shortness of breath, abdominal pain. Patient reports that he was recently seen by podiatry and was prescribed amlodipine. He took his first dose today. On presentation to the ED, he was hypotensive with blood pressure of 96/64, afebrile and was saturating well on room air. Leukocytosis present Hemoglobin of 10.1; similar to his baseline. BMP reveals hyponatremia with serum sodium of 131 Lactate was elevated to 3.4, down trended to 2.8 Pro-Fausto elevated High-sensitivity troponin elevated to 35,000; uptrending to 41,884. Chest x-ray shows bilateral pulmonary edema and emphysema. CTA with runoff shows diffuse aortic, iliac and both limb vessel atherosclerosis, distal aortic stenosis and total occlusion of both common iliac, external iliac with distal runoff through collateral circulation, left common femoral artery aneurysmal dilation, severe left leg vascular stenosis changes. Allergies Allergy/AdvReac Type Severity Reaction Status Date / Time No Known Allergies Allergy Verified 07/31/25 15:59 Home Medications Medication Instructions Recorded Confirmed Type losartan 50 mg tablet 50 mg PO QAM 07/17/18 10/01/25 History pravastatin 20 mg tablet 20 mg PO QAM 07/17/18 10/01/25 History furosemide 20 mg tablet 20 mg PO DAILY 07/31/25 10/01/25 History pantoprazole 40 mg tablet,delayed 40 mg PO DAILY #30 tabs 08/02/25 10/01/25 Rx release aspirin 81 mg tablet,delayed 0 mg PO QAM 10/01/25 10/01/25 History release (Ecotrin Low Strength) Past Med/Surg History Problem List (Updated 10/01/25 @ 15:47 by Eagle Collins DO) Pleural effusion (Acute) COPD (chronic obstructive pulmonary disease) (Acute) Acute non-ST elevation myocardial infarction (NSTEMI) (Acute) Arterial occlusion (Acute) Emphysema lung Hematochezia Hyponatremia (Acute) Tobacco use disorder (Acute) GI bleed (Acute) H/O fasciotomy Encounter for pre-operative examination Ischemia of left lower extremity (Acute) Hyponatremia (Chronic) Compartment syndrome Atrial septal defect Regional wall motion abnormality of heart Superficial femoral artery occlusion (Acute) Alcohol dependence (Chronic) Tobacco use (Chronic) Atherosclerosis (Chronic) HLD (hyperlipidemia) (Chronic) HTN (hypertension) (Chronic) Medical History Traumatic intracranial hematoma Surgical History Recent surgical procedure on lower extremity Patient had L leg wound closure/wound vac on 07/21/18 at [facility] under [place]. LMA 5 used. H/O hernia repair Hx of craniotomy DRAIN [id number] WORK INJURY NO ISSUES SINCE History of evacuation of hematoma LEFT X 2 S/P evacuation of hematoma H/O inguinal hernia repair Family History Father , age 79 Prostate cancer Heart disease Mother , age 74 Pancreatic cancer Social History Smoking Status: Current every day smoker Tobacco Type: Cigarettes Cigarettes Per Day: 1 ppd; Second Hand Exposure: No; Do You Dip or Chew Tobacco: No; Hx Alcohol Use: No Hx Substance Use: No Preferred Language: Tanzanian Communication Ability: Effective Visual Impairment: No Limitations Intervention Teacher Required: No Beliefs That Will Affect Care: None Current Living Situation: Spouse Feels Safe at Home: Yes Assistive Devices: Cane and Walker Review of Systems Review of Systems: All systems reviewed & are unremarkable except as noted in Subjective Physical Exam Physical Exam: On physical examination; Constitutional: Awake, alert oriented x 3. Respiratory: Bilateral decreased air entry at bases. Occasional wheeze Cardiovascular: RRR, no murmur, no edema Vessels: no JVD or carotid bruit Abdomen: normal bowel sounds, soft, nontender, no hepatosplenomegaly Musculoskeletal: dorsalis pedis appreciated with doppler Neurologic: PERRL, EOMI, accommodation nl, no face palsy, no dysarthria CN's II- XI intact bilaterally and moves all extremities Psychiatric: A+Ox3, euthymic affect Results & Data Results & Data Vital Signs (Past 12 Hours) Vital Signs Temp Pulse Pulse Resp BP BP Pulse Ox 10/01/25 16:06 126 H 10/01/25 15:30 123/80 10/01/25 15:30 123/80 10/01/25 15:30 123/80 10/01/25 15:30 123/80 10/01/25 15:30 123/80 10/01/25 15:30 110 H 23 94 10/01/25 15:15 120/86 10/01/25 15:15 120/86 10/01/25 15:15 120/86 10/01/25 15:15 120/86 10/01/25 15:15 120/86 10/01/25 15:15 109 H 22 94 10/01/25 15:00 120/83 10/01/25 15:00 120/83 10/01/25 15:00 120/83 10/01/25 15:00 120/83 10/01/25 15:00 120/83 10/01/25 15:00 108 H 22 95 10/01/25 14:45 109 H 23 96 10/01/25 14:45 117/85 10/01/25 14:45 117/85 10/01/25 14:45 117/85 10/01/25 14:45 117/85 10/01/25 14:45 117/85 10/01/25 14:15 110 H 20 114/85 96 10/01/25 14:15 88 L 10/01/25 14:00 122 H 22 124/82 95 10/01/25 13:30 112 H 22 107/82 91 10/01/25 12:09 116 H 10/01/25 12:00 112 H 18 94 10/01/25 12:00 111 H 18 109/87 94 10/01/25 11:24 36.3 C L 118 H 17 96/64 L 91 O2 Del Method O2 Flow Rate 10/01/25 16:06 10/01/25 15:30 10/01/25 15:30 10/01/25 15:30 10/01/25 15:30 10/01/25 15:30 10/01/25 15:30 Nasal Cannula 2 10/01/25 15:15 10/01/25 15:15 10/01/25 15:15 10/01/25 15:15 10/01/25 15:15 10/01/25 15:15 Nasal Cannula 2 10/01/25 15:00 10/01/25 15:00 10/01/25 15:00 10/01/25 15:00 10/01/25 15:00 10/01/25 15:00 Nasal Cannula 2 10/01/25 14:45 Nasal Cannula 2 10/01/25 14:45 10/01/25 14:45 10/01/25 14:45 10/01/25 14:45 10/01/25 14:45 10/01/25 14:15 Nasal Cannula 2 10/01/25 14:15 Room Air, Nasal Cannula 0 10/01/25 14:00 Nasal Cannula 2 10/01/25 13:30 Room Air 10/01/25 12:09 10/01/25 12:00 Room Air 10/01/25 12:00 Room Air 10/01/25 11:24 Room Air
[2025-10-01] MEDS: MIDAZOLAM HCL 1 MG/ML 2ML VIAL ONE (17:38)
[2025-10-01] MEDS: HEPARIN (PORCINE) 1000 UNIT/ML 10 ML (CATH LAB USE ONLY) ONE (17:38)
[2025-10-01] MEDS: NITROGLYCERIN/D5W 100MCG/ML 20ML SYR ONE (17:39)
[2025-10-01] MEDS: OPTIRAY 350 ONE (17:39)
[2025-10-01] MEDS: niCARdipine 2,000 MCG/20 ML SYR ONE (17:39)
[2025-10-01] MEDS: LIDOCAINE 1% LOCAL 20 ML VIAL ONE (17:39)
--- NOTE | 2025-10-01 17:53 | Post Anesthesia Assessment ---
Date of Service October 01, 2025 Post Sedation Assessment Vital Signs Temp Pulse Pulse Resp BP BP Pulse Ox 10/01/25 16:30 115 H 20 98 10/01/25 16:15 115/80 10/01/25 16:15 115/80 10/01/25 16:15 115/80 10/01/25 16:15 115/80 10/01/25 16:15 115/80 10/01/25 16:15 114 H 21 96 10/01/25 16:06 126 H 10/01/25 16:00 135/94 10/01/25 16:00 135/94 10/01/25 16:00 135/94 10/01/25 16:00 135/94 10/01/25 16:00 135/94 10/01/25 16:00 130 H 24 94 10/01/25 15:45 116/85 10/01/25 15:45 116/85 10/01/25 15:45 116/85 10/01/25 15:45 116/85 10/01/25 15:45 116/85 10/01/25 15:45 108 H 21 96 10/01/25 15:30 123/80 10/01/25 15:30 123/80 10/01/25 15:30 123/80 10/01/25 15:30 123/80 10/01/25 15:30 123/80 10/01/25 15:30 123/80 10/01/25 15:30 123/80 10/01/25 15:30 123/80 10/01/25 15:30 123/80 10/01/25 15:30 110 H 23 94 10/01/25 15:15 120/86 10/01/25 15:15 120/86 10/01/25 15:15 120/86 10/01/25 15:15 120/86 10/01/25 15:15 120/86 10/01/25 15:15 109 H 22 94 10/01/25 15:00 120/83 10/01/25 15:00 120/83 10/01/25 15:00 120/83 10/01/25 15:00 120/83 10/01/25 15:00 120/83 10/01/25 15:00 108 H 22 95 10/01/25 14:45 109 H 23 96 10/01/25 14:45 117/85 10/01/25 14:45 117/85 10/01/25 14:45 117/85 10/01/25 14:45 117/85 10/01/25 14:45 117/85 10/01/25 14:15 110 H 20 114/85 96 10/01/25 14:15 88 L 10/01/25 14:00 122 H 22 124/82 95 10/01/25 13:30 112 H 22 107/82 91 10/01/25 12:09 116 H 10/01/25 12:00 112 H 18 94 10/01/25 12:00 111 H 18 109/87 94 10/01/25 11:24 36.3 C L 118 H 17 96/64 L 91 O2 Del Method O2 Flow Rate 10/01/25 16:30 Nasal Cannula 2 10/01/25 16:15 10/01/25 16:15 10/01/25 16:15 10/01/25 16:15 10/01/25 16:15 10/01/25 16:15 Nasal Cannula 2 10/01/25 16:06 10/01/25 16:00 10/01/25 16:00 10/01/25 16:00 10/01/25 16:00 10/01/25 16:00 10/01/25 16:00 Nasal Cannula 2 10/01/25 15:45 10/01/25 15:45 10/01/25 15:45 10/01/25 15:45 10/01/25 15:45 10/01/25 15:45 Nasal Cannula 2 10/01/25 15:30 10/01/25 15:30 10/01/25 15:30 10/01/25 15:30 10/01/25 15:30 10/01/25 15:30 10/01/25 15:30 10/01/25 15:30 10/01/25 15:30 10/01/25 15:30 Nasal Cannula 2 10/01/25 15:15 10/01/25 15:15 10/01/25 15:15 10/01/25 15:15 10/01/25 15:15 10/01/25 15:15 Nasal Cannula 2 10/01/25 15:00 10/01/25 15:00 10/01/25 15:00 10/01/25 15:00 10/01/25 15:00 10/01/25 15:00 Nasal Cannula 2 10/01/25 14:45 Nasal Cannula 2 10/01/25 14:45 10/01/25 14:45 10/01/25 14:45 10/01/25 14:45 10/01/25 14:45 10/01/25 14:15 Nasal Cannula 2 10/01/25 14:15 Room Air, Nasal Cannula 0 10/01/25 14:00 Nasal Cannula 2 10/01/25 13:30 Room Air 10/01/25 12:09 10/01/25 12:00 Room Air 10/01/25 12:00 Room Air 10/01/25 11:24 Room Air Discharge Sedation Level of Care: Fast Track Phase II Post Sedation Plan On clinical assessment, the patient appears to have tolerated the sedation without complications. Patient is recovering as anticipated. Patient will continue to be monitored by nursing and may be discharged when sedation discharge criteria are met per below protocol. Upon Completions of procedure up to 15 minutes continue every 5 minute vital signs and the P.A.R. score; then discharge to a Phase I or Fast Track to Phase II per the following guidelines: * Discharge Patient to appropriate Phase II area if PAR is 8 or greater or return to pre- procedure baseline. The post - procedure orders will be as directed. * If PAR score is less than 8 or not return to pre-procedure baseline then patient will follow Phase I monitoring till PAR is reached for Phase II. The Phase I may be done in procedure room or may call to secure a Phase I area. * If naloxone or flumazenil are used for reversal, hold in Phase I for continued monitoring from when last reversal dose was given for a minimum of 60 minutes or longer pending the nurse and/or physician discretion of patient condition before discharge to Phase II. Please call the Sedation Physician to re-evaluate and complete post-note for discharge to Phase II area. Do NOT discharge from procedure sedation or Phase 1 until post- sedation evaluation note is complete by procedure /sedation MD Sedation Discharge Instructions to be given to the patient at discharge to home. [facility] Procedure Codes (Charges) Indication for Procedure Indication for procedure: cardiomyopathy
--- NOTE | 2025-10-01 18:04 | Electrocardiogram Report ---
Test Reason : Blood Pressure : */* mmHG Vent. Rate : 114 BPM Atrial Rate : 114 BPM P-R Int : 130 ms QRS Dur : 98 ms QT Int : 346 ms P-R-T Axes : 63 58 100 degrees QTcB Int : 476 ms Sinus tachycardia Low voltage QRS Anterolateral infarct , age undetermined Abnormal ECG When compared with ECG of 07-31-2025, the ecg changes are similar. The anterior ST changes are levi lar to prior ECG Confirmed by Shellie Maurice ([place]) on 10/01/2025 6:04:20 PM Referred By: REFERRED SELF Confirmed By: Shellie Maurice
[2025-10-01] MEDS ORDERED: ATORVASTATIN 40 MG TAB PO SCH (18:15)
--- NOTE | 2025-10-01 18:22 | Pre Anesthesia Assessment ---
Date of Service October 01, 2025 Pre Sedation Assessment Vital Signs Temp Pulse Pulse Resp BP BP Pulse Ox 10/01/25 16:30 115 H 20 98 10/01/25 16:15 115/80 10/01/25 16:15 115/80 10/01/25 16:15 115/80 10/01/25 16:15 115/80 10/01/25 16:15 115/80 10/01/25 16:15 114 H 21 96 10/01/25 16:06 126 H 10/01/25 16:00 135/94 10/01/25 16:00 135/94 10/01/25 16:00 135/94 10/01/25 16:00 135/94 10/01/25 16:00 135/94 10/01/25 16:00 130 H 24 94 10/01/25 15:45 116/85 10/01/25 15:45 116/85 10/01/25 15:45 116/85 10/01/25 15:45 116/85 10/01/25 15:45 116/85 10/01/25 15:45 108 H 21 96 10/01/25 15:30 123/80 10/01/25 15:30 123/80 10/01/25 15:30 123/80 10/01/25 15:30 123/80 10/01/25 15:30 123/80 10/01/25 15:30 123/80 10/01/25 15:30 123/80 10/01/25 15:30 123/80 10/01/25 15:30 123/80 10/01/25 15:30 110 H 23 94 10/01/25 15:15 120/86 10/01/25 15:15 120/86 10/01/25 15:15 120/86 10/01/25 15:15 120/86 10/01/25 15:15 120/86 10/01/25 15:15 109 H 22 94 10/01/25 15:00 120/83 10/01/25 15:00 120/83 10/01/25 15:00 120/83 10/01/25 15:00 120/83 10/01/25 15:00 120/83 10/01/25 15:00 108 H 22 95 10/01/25 14:45 109 H 23 96 10/01/25 14:45 117/85 10/01/25 14:45 117/85 10/01/25 14:45 117/85 10/01/25 14:45 117/85 10/01/25 14:45 117/85 10/01/25 14:15 110 H 20 114/85 96 10/01/25 14:15 88 L 10/01/25 14:00 122 H 22 124/82 95 10/01/25 13:30 112 H 22 107/82 91 10/01/25 12:09 116 H 10/01/25 12:00 112 H 18 94 10/01/25 12:00 111 H 18 109/87 94 10/01/25 11:24 36.3 C L 118 H 17 96/64 L 91 O2 Del Method O2 Flow Rate 10/01/25 16:30 Nasal Cannula 2 10/01/25 16:15 10/01/25 16:15 10/01/25 16:15 10/01/25 16:15 10/01/25 16:15 10/01/25 16:15 Nasal Cannula 2 10/01/25 16:06 10/01/25 16:00 10/01/25 16:00 10/01/25 16:00 10/01/25 16:00 10/01/25 16:00 10/01/25 16:00 Nasal Cannula 2 10/01/25 15:45 10/01/25 15:45 10/01/25 15:45 10/01/25 15:45 10/01/25 15:45 10/01/25 15:45 Nasal Cannula 2 10/01/25 15:30 10/01/25 15:30 10/01/25 15:30 10/01/25 15:30 10/01/25 15:30 10/01/25 15:30 10/01/25 15:30 10/01/25 15:30 10/01/25 15:30 10/01/25 15:30 Nasal Cannula 2 10/01/25 15:15 10/01/25 15:15 10/01/25 15:15 10/01/25 15:15 10/01/25 15:15 10/01/25 15:15 Nasal Cannula 2 10/01/25 15:00 10/01/25 15:00 10/01/25 15:00 10/01/25 15:00 10/01/25 15:00 10/01/25 15:00 Nasal Cannula 2 10/01/25 14:45 Nasal Cannula 2 10/01/25 14:45 10/01/25 14:45 10/01/25 14:45 10/01/25 14:45 10/01/25 14:45 10/01/25 14:15 Nasal Cannula 2 10/01/25 14:15 Room Air, Nasal Cannula 0 10/01/25 14:00 Nasal Cannula 2 10/01/25 13:30 Room Air 10/01/25 12:09 10/01/25 12:00 Room Air 10/01/25 12:00 Room Air 10/01/25 11:24 Room Air Cardiovascular Additional Comments: Regular rate and rhythm. S4 gallop. Systolic murmur. No edema. Poor distal pulses radially and femoral E. Respiratory Additional Comments: Clear to auscultation bilaterally. No wheezing, rhonchi, or rales. Pre-Sedation Airway Assessment Smoking Status: Current every day smoker Mallampati 3 ASA 4 Notes The planned sedation has been discussed with the patient. Informed Consent was obtained. I have identified the patient, determined the appropriateness of sedation and have assessed the patient immediately prior to the procedure. All medicine(s) and interventions are by my order.
[2025-10-01 18:36] VITALS: PULSE 107; TEMP 98.1
--- NOTE | 2025-10-01 18:38 | Cardiac Catheterization ---
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 Cardiac Status Clinical evaluation leading to the procedure CAD Presenation: No Sxs, No angina Heart Failure: NYHA Class: CCS III Cardiogenic Shock within 24 Hours: No Cardiac Arrest within 24 Hours: No Diagnostic Physicians Name: Noé Camarena MD, PhD Closure Device Recommendations: Medical Therapy and/or Counseling and Management Recommendatons (Transfer to tertiary center for further advanced services.) Cardiac Cath Procedure Full Procedure Date October 01, 2025 Pre-Procedure Diagnosis Pre-Procedure Diagnosis: Cardiomyopathy AUC Score AUC Score: 07 Post-Procedure Diagnosis Post-Procedure Diagnosis: Cardiothoracic Finding (Severe PAD in the bilateral femoral arteries and bilateral radial arteries prohibitive to safely access for cardiac cath.) Procedure(s) Performed Procedure(s) Performed: Ultrasound Guided Vascular Access Cytopathology Technologist Noé Camarena MD, PhD Estimated Blood Loss Estimated Blood Loss: 3 cc Medication(s) Medication(s): Fentanyl, Versed Summary of Findings Patient was brought to the cardiac catheterization suite where he was shaved and prepped in a sterile fashion. Sedated using IV Versed and fentanyl. Soft tissues of the right wrist were anesthetized using 3 mL of 1% Xylocaine. Patient's radial artery pulse was barely palpable. Therefore, the ultrasound was utilized in order to attempt access. Multiple attempts at right radial access were unsuccessful. We did have flash of blood but were unable to advance a 0.014 wire. We also tried right ulnar artery with similar results. Therefore, we turned our attention to femoral artery access. Soft tissues of the right groin were anesthetized using 10 mL of 1% Xylocaine. Again using the ultrasound for guidance we attempted to access the common femoral artery with the micropuncture needle. The ultrasound demonstrated near total occlusion of the common femoral artery at multiple levels. We were able to advance the micropuncture needle with some difficulty and have blood return. However, when we advanced the wire it could not pass above the common iliac. We advanced a micropuncture sheath under fluoroscopic guidance over the wire and removed the wire. We injected contrast and this demonstrated very little flow. Probable occlusion proximally. We therefore abandoned right femoral artery access. We next attempted left radial artery access. Soft tissues of the left wrist were anesthetized using 2 mL of 1% Xylocaine. Again, using the ultrasound for guidance we attempted to access the left radial artery. We could not gain luminal access despite multiple attempts at different levels. We therefore abandoned attempts from the wrist. Decided to try access at the left femoral artery. Soft tissue the left groin were anesthetized using 8 mL of 1% Xylocaine. Using ultrasound for guidance, we advanced a micropuncture needle into the left common femoral artery. We did have flash of blood and were able to advance the 0.014 [place] wire to the level of the common iliac before we met resistance. We advanced the micropuncture sheath over the wire and then removed the wire. We again injected contrast and there was clear evidence that the vessel was occluded. As was the case in the other attempts to gain arterial access, the sheath or needle was removed and hemostasis was obtained with manual compression. Because the patient had no chest pain, no acute ischemic ST elevations or acute ischemic ST depressions, no dyspnea, and came to the hospital for weakness in his legs we decided against further attempts at performing cardiac catheterization at this institution. I felt the brachial approach might be possible but carries higher risk of bleed and the anticipated benefit of the cath at this point was deemed insufficient to attempt that procedure here. Therefore, I have recommended that if the primary cardiology team feels catheterization is imperative at this time that they should transfer him to tertiary center which has adequate surgical backup for both the vascular access as well as any revascularization of the coronaries. Particularly since this patient has very high pretest probability of multivessel coronary disease. Patient is now admitted to the ICU. Hemodynamics Rest Ao:: Not obtained Final Ao: Not obtained LV: Not obtained Recommendations Recommendations: Medical Therapy and/or Counseling and Management Recommendatons (Transfer to tertiary center for further advanced services.) Radiation Exposure (mGy) 150 mGy, fluoroscopy time 3 minutes Contrast (mls) 10 cc Anesthesia 2 mg Versed, 50 mcg fentanyl IV. Procedural Complication(s) None Disposition Ethylene Compressor Operator Holding/Recovery I attest to the content of the Intraoperative Record and any orders documented therein. Any exceptions are noted below. [facility] Card Cath Procedure Codes Therapeutic Services & Ancillary Procedure 1: Cardiovascular Tx and Anc Procedures: 11840 Ultrasonic Guidance Vascular Access Moderate Sedation Procedure 1: Sedation/Anesthesia: 85617 Mod Sedation by the same physician;Init15 Min Child Age 5 & Up (Initial 15 minutes, start time 1652) Procedure 2: Sedation/Anesthesia: 81009 Mod Sedation by the same physician; Ea [id number] Minutes (Additional 28 minutes, end time 1735) PG Care Time/CCT Total # of Minutes Spent Total Time Spent with Patient: Total time spent is greater than 50% in coordination of care (as documented) at patient's floor/unit and/or counseling patient:
[2025-10-01] MEDS ORDERED: ALBUT/IPRATROP 3MG/0.5MG NEB 3 ML VIAL NEB SCH (19:00)
[2025-10-01] MEDS ORDERED: FORMOTEROL 20 MCG/2 ML VIAL NEB SCH (19:00)
[2025-10-01] MEDS ORDERED: BUDESONIDE 0.5 MG/2 ML VIAL (PULMICORT) NEB SCH (19:00)
--- NOTE | 2025-10-01 19:43 | Discharge Summary ---
Discharge Summary Date of Service October 01, 2025 Principal Dx & Hospital Course #1 = Principal Diagnosis (1) Acute non-ST elevation myocardial infarction (NSTEMI): Plan Assessment/plan NSTEMI Severe peripheral vascular disease Acute on chronic systolic CHF Possible pneumonia Hyponatremia Patient presented to the hospital with fall and generalized weakness Hemoglobin of 10.1; serum sodium of 131 Lactate was elevated to 3.4, down trended to 2.8 Pro-Fausto elevated High-sensitivity troponin elevated to 35,000; uptrending to 41,884. Chest x-ray shows bilateral pulmonary edema and emphysema. CTA with runoff shows diffuse aortic, iliac and both limb vessel atherosclerosis, distal aortic stenosis and total occlusion of both common iliac, external iliac with distal runoff through collateral circulation, left common femoral artery aneurysmal dilation, severe left leg vascular stenosis changes. Discussion was done with echocardiogram tech, cardiology; stat echo was obtained which showed severely reduced EF of less than 15%; all gillis are akinetic except for basal segment. Heart alert was called after cardiology evaluated the patient; general cardiology discussed the case with interventional cardiology for cardiac cath. Continue on heparin drip, aspirin, Lipitor. Obtain lipid panel in a.m. Trend troponin Consult vascular surgery for further recommendation Continue on empiric antibiotic with ceftriaxone, doxycyline Trend troponin hold diuretics for now COPDbudesonide, formoterol nebs, DuoNeb Q8 Hyponatremia- serum sodium 130s; similar to the baseline Hypertensioncontinue losartan. Hold amlodipine and Lasix Hyperlipidemiastarted on Lipitor Full code DVT prophylaxis heparin Plan of care discussed with the patient's at bedside. She is in agreement with the plan total critical time spent evaluating patient, direct bedside care, chart review, placing orders, interpretation of diagnostic studies, discussion with consultants, patient, and family members, as well as other required patient management activities is 90 minutes Please note the above document was generated using voice recognition software. It may contain grammatical, syntax or spelling errors. 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 EKG on arrival with T wave inversions in lateral leads, ST depressions in inferior leads. Troponin 46774 in ED, code heart alert called. CTA runoff ordered shows bilateral stenoses in Distal aortic stenosis and total occlusion of both common iliac, external iliac vessels. Taken to laboratory inspector, patient arteries unable to be accessed, taken to PCU. On PCU, nurse called patient to bedside, no palpable pulses in bilateral lower extremities via doppler or hand. Mottling and lukewarm lower extremities noted. Troponin 32569 and lactic of 3.5 on arrival. Consideration for critical limb ischemia, impending cardiogenic shock. Called cardiac ICU, recommended medical ICU. On 10/01/2025 patient transferred to [facility] – [place], [place]. To do: [ ] consideration for cardiac catheterization [ ] consideration for vascular intervention in bilateral LE Medication Changes From Visit -see below Admission HPI Per Admitting Provider History obtained from chart review, interview with the patient and discussion with the ED provider. Past medical history left ischemic leg with left femoral artery occlusion, compartment syndrome status post surgery in 2018, current tobacco smoker, hypertension. Patient presented to the hospital after he had a fall. He reports that he tried to get up but was unable to do so; got weaker and fell down. No complaints of dizziness, chest pain, shortness of breath, abdominal pain. Patient reports that he was recently seen by podiatry and was prescribed amlodipine. He took his first dose today. On presentation to the ED, he was hypotensive with blood pressure of 96/64, afebrile and was saturating well on room air. Leukocytosis present Hemoglobin of 10.1; similar to his baseline. BMP reveals hyponatremia with serum sodium of 131 Lactate was elevated to 3.4, down trended to 2.8 Pro-Fausto elevated High-sensitivity troponin elevated to 35,000; uptrending to 41,884. Chest x-ray shows bilateral pulmonary edema and emphysema. CTA with runoff shows diffuse aortic, iliac and both limb vessel atherosclerosis, distal aortic stenosis and total occlusion of both common iliac, external iliac with distal runoff through collateral circulation, left common femoral artery aneurysmal dilation, severe left leg vascular stenosis changes. Discharge Exam Gen: A&O NAD, sarcopenia and anorexia noted HEENT: NCAT, EOMI, not icteric. External ears normal. No rhinorrhea. Moist mucous membranes. Neck: Supple, full range of motion, no observable masses, No meningeal sign. Lungs: crackles in bilateral lower lung miles CV: RRR, no edema. Abdomen: Soft, nondistended, No rebound tenderness. MSK: no palpable pulses in bilateral LE, mottling noted Skin: No rashes, petechiae, lesions. Normal color per patient. Neuro: Normal Gait, Grossly intact. Psych: Appropriate for situation. Updated Medication List Medication Instructions Recorded Confirmed Type losartan 50 mg tablet 50 mg PO QAM 07/17/18 10/01/25 History pravastatin 20 mg tablet 20 mg PO QAM 07/17/18 10/01/25 History furosemide 20 mg tablet 20 mg PO DAILY 07/31/25 10/01/25 History pantoprazole 40 mg tablet,delayed 40 mg PO DAILY #30 tabs 08/02/25 10/01/25 Rx release amoxicillin 500 mg-potassium 1 tab PO BID 5 days #10 tabs 10/01/25 Rx clavulanate 125 mg tablet (Augmentin) aspirin 81 mg tablet,delayed 0 mg PO QAM 10/01/25 10/01/25 History release (Ecotrin Low Strength) atorvastatin 40 mg tablet 40 mg PO QAM 30 days #30 tabs 10/01/25 Rx doxycycline hyclate 100 mg capsule 100 mg PO BID 5 days #10 caps 10/01/25 Rx Hospital Stay Data Consultations 10/01/25 14:21 ED Decision to Admit Stat 10/01/25 14:44 Consult Cardiology Routine 10/01/25 18:10 Consult Vascular Surgery Routine 10/01/25 19:15 Consult Founder And Chief Executive Officer Routine 10/01/25 19:26 Burn CD for patient Stat 10/01/25 19:29 Burn CD for patient Stat Procedures Performed Operation Date: 10/01/25 16:30 Actual Procedures p Cineradiography w/Routine Exam - Noé Camarena MD, PhD Diagnostic Imagining Performed 10/01/25 11:39 CTA abd aorta runof w con [CT ang AA runof w inc wo ifdon] Stat 10/01/25 16:35 CL Cath Imgs for PACS use only Stat Pending Results Patient Have Any Pending Studies at Discharge: No Discharge Instructions Given to Patient (Per Discharging Provider) Diagnosis: NSTEMI, critical limb ischemia, acute HFrEF (EF<15%), r/o cardiogenic shock, CAP Incidental Findings: CAP Follow Ups: PCP, vascular surgery, cardiology 1. Please follow up with PCP, vascular surgery, cardiology. 2. Transfer [facility]. Total Time Total Time Spent Total Time Spent (In Minutes): I spent a total of 65 minutes in direct patient care, including [id number] time with the patient and/or family, reviewing medical records, ordering and reviewing diagnostic tests, and coordinating care with other healthcare providers. This time includes: history taking, physical examination, medical decision making, counseling, ECG interpretation, imaging interpretation, lab interpretation, orders, and education, excluding time spent in the performance of separately billed services.
--- NOTE | 2025-10-01 20:12 | Critical Care Consultation ---
Date of Consultation October 01, 2025 Assessment & Plan (1) LV dysfunction: (2) COPD (chronic obstructive pulmonary disease): (3) Acute non-ST elevation myocardial infarction (NSTEMI): (4) Arterial occlusion: Plan Monitor for acute changes or need for hemodynamic support while awaiting air transport. On their way. Family updated. Case discussed with admitting service and no current needs for access, pressors, or inotropes, or airway management. History of Present Illness Reason for Consultation: limb ischemia Requesting Physician: Eh Attending Physician: Noé Camarena MD, PhD History of Present Illness 65 YOM transferred to the ICU while awaiting transfer to [place] cardiac ICU in setting of depressed EF, limb ischemia with diffuse stensosis and athersclerotic changes. Patient was taken urgently to the cardiac catheterization technologist where vascular access was unable to be obtained to perform angiography. In the ICU the patient was here for short stay with air transport on their way. Patient is awake, conversant, warm, and hemodynamically stable without need for inotropic or vasopressor support. Heparin infusion is being initiated. IV acces is appropriate. We will continue to monitor for acute changes while awaiting transport. ICU has no further recommendations. CODE: FULL. Allergies Allergy/AdvReac Type Severity Reaction Status Date / Time No Known Allergies Allergy Verified 07/31/25 15:59 Home Medications Medication Instructions Recorded Confirmed Type losartan 50 mg tablet 50 mg PO QAM 07/17/18 10/01/25 History pantoprazole 40 mg tablet,delayed 40 mg PO DAILY #30 tabs 08/02/25 10/01/25 Rx release amoxicillin 500 mg-potassium 1 tab PO BID 5 days #10 tabs 10/01/25 Rx clavulanate 125 mg tablet (Augmentin) aspirin 81 mg tablet,delayed 0 mg PO QAM 10/01/25 10/01/25 History release (Ecotrin Low Strength) atorvastatin 40 mg tablet 40 mg PO QAM 30 days #30 tabs 10/01/25 Rx doxycycline hyclate 100 mg capsule 100 mg PO BID 5 days #10 caps 10/01/25 Rx Patient History Medical History Traumatic intracranial hematoma Surgical History Recent surgical procedure on lower extremity Patient had L leg wound closure/wound vac on 07/21/18 at [facility] under [place]. LMA 5 used. H/O hernia repair Hx of craniotomy DRAIN [id number] WORK INJURY NO ISSUES SINCE History of evacuation of hematoma LEFT X 2 S/P evacuation of hematoma H/O inguinal hernia repair Family History Father , age 79 Prostate cancer Heart disease Mother , age 74 Pancreatic cancer Social History Smoking Status: Current every day smoker Tobacco Type: Cigarettes Cigarettes Per Day: 1 pk/day; Second Hand Exposure: No; Do You Dip or Chew Tobacco: No; Hx Alcohol Use: Yes Alcohol type: beer Hx Substance Use: No Preferred Language: [place]i Communication Ability: Effective Visual Impairment: No Limitations [employer] Operator Required: No Beliefs That Will Affect Care: None Current Living Situation: Spouse Feels Safe at Home: Yes Assistive Devices: None Physical Exam Physical Exam: PHYSICAL EXAM: General: awake, alert, no apparent distress Head: Normocephalic, atraumatic ENT: PERRL, EOMI, no pharyngeal exudate, mucous membranes moist Neuro: AAO x 3, speech clear and appropriate, strength intact bilaterally 5/5, sensation intact and equal all extremities no pronator drift Chest: equal rise and fall of the chest, no accessory muscle use, no heaves or thirlls, Clear to auscultation, on room air, Cardiac: Regular rate and rhythm, telemetry reviewed- NSR, skin warm dry, cap refill delayed in lower extremities, lower extremities without dopploerable or palpable pulses, warm and without pain or rubor. full range of motion GI: NABS x 4 quadrants, soft, nontender to palpation, no rebound, guarding or tenderness Results & Data Results & Data Vital Signs (Past 12 Hours) Vital Signs Temp Pulse Pulse Resp BP BP Pulse Ox 10/01/25 18:28 36.7 C 107 H 14 114/80 91 10/01/25 16:30 115 H 20 98 10/01/25 16:15 115/80 10/01/25 16:15 115/80 10/01/25 16:15 115/80 10/01/25 16:15 115/80 10/01/25 16:15 115/80 10/01/25 16:15 114 H 21 96 10/01/25 16:06 126 H 10/01/25 16:00 135/94 10/01/25 16:00 135/94 10/01/25 16:00 135/94 10/01/25 16:00 135/94 10/01/25 16:00 135/94 10/01/25 16:00 130 H 24 94 10/01/25 15:45 116/85 10/01/25 15:45 116/85 10/01/25 15:45 116/85 10/01/25 15:45 116/85 10/01/25 15:45 116/85 10/01/25 15:45 108 H 21 96 10/01/25 15:30 123/80 10/01/25 15:30 123/80 10/01/25 15:30 123/80 10/01/25 15:30 123/80 10/01/25 15:30 123/80 10/01/25 15:30 123/80 10/01/25 15:30 123/80 10/01/25 15:30 123/80 10/01/25 15:30 123/80 10/01/25 15:30 110 H 23 94 10/01/25 15:15 120/86 10/01/25 15:15 120/86 10/01/25 15:15 120/86 10/01/25 15:15 120/86 10/01/25 15:15 120/86 10/01/25 15:15 109 H 22 94 10/01/25 15:00 120/83 10/01/25 15:00 120/83 10/01/25 15:00 120/83 10/01/25 15:00 120/83 10/01/25 15:00 120/83 10/01/25 15:00 108 H 22 95 10/01/25 14:45 109 H 23 96 10/01/25 14:45 117/85 10/01/25 14:45 117/85 10/01/25 14:45 117/85 10/01/25 14:45 117/85 10/01/25 14:45 117/85 10/01/25 14:15 110 H 20 114/85 96 10/01/25 14:15 88 L 10/01/25 14:00 122 H 22 124/82 95 10/01/25 13:30 112 H 22 107/82 91 10/01/25 12:09 116 H 10/01/25 12:00 112 H 18 94 10/01/25 12:00 111 H 18 109/87 94 10/01/25 11:24 36.3 C L 118 H 17 96/64 L 91 O2 Del Method O2 Flow Rate 10/01/25 18:28 Room Air 10/01/25 16:30 Nasal Cannula 2 10/01/25 16:15 10/01/25 16:15 10/01/25 16:15 10/01/25 16:15 10/01/25 16:15 10/01/25 16:15 Nasal Cannula 2 10/01/25 16:06 10/01/25 16:00 10/01/25 16:00 10/01/25 16:00 10/01/25 16:00 10/01/25 16:00 10/01/25 16:00 Nasal Cannula 2 10/01/25 15:45 10/01/25 15:45 10/01/25 15:45 10/01/25 15:45 10/01/25 15:45 10/01/25 15:45 Nasal Cannula 2 10/01/25 15:30 10/01/25 15:30 10/01/25 15:30 10/01/25 15:30 10/01/25 15:30 10/01/25 15:30 10/01/25 15:30 10/01/25 15:30 10/01/25 15:30 10/01/25 15:30 Nasal Cannula 2 10/01/25 15:15 10/01/25 15:15 10/01/25 15:15 10/01/25 15:15 10/01/25 15:15 10/01/25 15:15 Nasal Cannula 2 10/01/25 15:00 10/01/25 15:00 10/01/25 15:00 10/01/25 15:00 10/01/25 15:00 10/01/25 15:00 Nasal Cannula 2 10/01/25 14:45 Nasal Cannula 2 10/01/25 14:45 10/01/25 14:45 10/01/25 14:45 10/01/25 14:45 10/01/25 14:45 10/01/25 14:15 Nasal Cannula 2 10/01/25 14:15 Room Air, Nasal Cannula 0 10/01/25 14:00 Nasal Cannula 2 10/01/25 13:30 Room Air 10/01/25 12:09 10/01/25 12:00 Room Air 10/01/25 12:00 Room Air 10/01/25 11:24 Room Air Coding Level of Care Code 12875 IN/OBS CONSULT LVL 2,35M Diagnoses LV dysfunction I51.9 COPD (chronic obstructive pulmonary disease) J44.9 Acute non-ST elevation myocardial infarction (NSTEMI) I21.4 Arterial occlusion I70.90
[2025-10-01 20:25] VITALS: BP 111/84; RESP 18; O2SAT 88
[2025-10-01] MEDS ORDERED: DOXYCYCLINE HYCLATE 100 MG CAP PO SCH (21:00)
[2025-10-02] MEDS ORDERED: ASPIRIN 81 MG ECTAB PO SCH (09:00)
[2025-10-02] MEDS ORDERED: LOSARTAN POTASSIUM 50 MG TAB PO SCH (09:00)
--- NOTE | 2025-10-02 12:27 | Electrocardiogram Report ---
Test Reason : Blood Pressure : */* mmHG Vent. Rate : 116 BPM Atrial Rate : 116 BPM P-R Int : 132 ms QRS Dur : 96 ms QT Int : 348 ms P-R-T Axes : 74 81 100 degrees QTcB Int : 483 ms Sinus tachycardia Anterolateral infarct (cited on or before 01-Oct-2025) Abnormal ECG When compared with ECG of 01-Oct-2025 11:46, (unconfirmed) Non-specific change in ST segment in Inferior leads Anterolateral slight ST elevation is unchanged Confirmed by Shellie Maurice ([place]) on 10/02/2025 12:26:47 PM Referred By: REFERRED SELF Confirmed By: Shellie Maurice
[2025-10-02] MEDS ORDERED: cefTRIAXone SODIUM 2,000 MG/50 ML BAG IV SCH (13:00)
== END 2025-10-01 20:17 | disposition short-term general hospital (02) | DRG 280 ==
LOC: ED 11:22 → CC 16:43 → 4W 16:44 → 1E 19:05